=== PATIENT | male | born 1985 | race African-American/Black ===

== ENCOUNTER 2022-12-07 23:18 | Emergency (ER) | payer MEDICAID ==
[~2022-12-07] VITALS: Ht 185.4 cm; Wt 74.6 kg
[2022-12-08 00:27] VITALS: BP 137/90; PULSE 96; TEMP 98.3; O2SAT 98
[2022-12-08] MEDS ORDERED: KETOROLAC 60MG/2ML VIAL IM STA (01:04)
[2022-12-08] MEDS ORDERED: CEFTRIAXONE SODIUM 1 G/VIAL IM NR (02:00)
[2022-12-08] MEDS ORDERED: LIDOCAINE HCL/PF 1% 10 MG/ML 5ML VIAL INFIL NR (02:00)
[2022-12-08] MEDS ORDERED: CEPH500C2 MT (02:28)
[2022-12-08] MEDS ORDERED: SULF1TAB48 MT (02:28)
[2022-12-08] MEDS ORDERED: IBUP-2029 PO (02:28)
[2022-12-08] MEDS ORDERED: CLOT15CR27 TP (02:28)
[2022-12-08] MEDS ORDERED: FLUC150T46 MT (02:28)
== END 2022-12-08 03:16 | disposition home or self-care (01) ==
LOC: ER 23:18
DX: L03.114 Cellulitis of left upper limb (principal); L03.115 Cellulitis of right lower limb; B35.3 Tinea pedis
CPT/HCPCS: 99284; 73630; 96372; J0696; J1885; J3490; Z7610 ×2

== ENCOUNTER 2023-10-29 14:30 | Emergency (ER) | payer MEDICAID ==
[~2023-10-29] VITALS: Ht 190.5 cm; Wt 80.0 kg
[~2023-10-29 14:30] MED LIST: CEPH500C2 MT; CLOT15CR27 TP; FLUC150T46 MT; IBUP-2029 PO; SULF1TAB48 MT
[2023-10-29 14:32] VITALS: BP 138/78; RESP 18; TEMP 98.3; O2SAT 99
[2023-10-29 14:33] VITALS: PULSE 92
== END 2023-10-29 15:39 | disposition left against medical advice (07) ==
LOC: ER 14:30
DX: M79.89 Other specified soft tissue disorders (principal); Z53.21 Procedure and treatment not carried out due to patient leaving prior to being seen by health care provider